=== PATIENT | female | born 1955 | race Caucasian/White ===

== ENCOUNTER 2017-01-15 04:27 | Inpatient (IN) | payer OTHER ==
--- NOTE | ~2017-01-15 | EKG ---
PATIENT: AQUILES MENDOZA UNIT #: [id number] Ventricular Rate: 59 BPM Atrial Rate: 59 BPM P-R Interval: 132 ms QRS Duration: 96 ms Q-T Interval: 474 ms QTC Calculation(Bezet): 469 ms P [place]: 66 degrees Calculated R [place]: 39 degrees Calculated T [place]: 37 degrees Diagnosis Line: Sinus bradycardia with sinus arrhythmia Diagnosis Line: Septal infarct (cited on or before 15-JAN-2017) Diagnosis Line: Abnormal ECG Diagnosis Line: When compared with ECG of 16-JAN-2017 06:18, Diagnosis Line: Serial changes of Septal infarct Present Diagnosis Line: Confirmed by JAZMINE KELLEY MD ([id number]) on 01/17/2017 Diagnosis Line: 7:40:32 PM INTERPRETING MD: WARREN MCCURDY
--- NOTE | ~2017-01-15 | CR72 ---
[facility] A Service of [facility] RADIOLOGY TEXT RESULTS PATIENT: AQUILES MENDOZA LOCATION: [address] : [birth year] UNIT #: [id number] AGE: [address]: Jace Mcgregor MD SEX: F ORDER DR: [id number] [facility] [address] [facility] [place], [place] [address] [id number] MR#: [id number] Acc #: [id number] NAME: AQUILES MENDOZA : 1955 SEX: F STUDY DATE/TIME: 01/15/2017 17:00 UNIT: [facility] ROOM: [facility] STUDY DESCRIPTION: CR Chest Single View Portable Attending Physician: Marybel Ramesh M.D. Ordering Physician: Lalito Ya M.D. Primary Care Physician: Leon Mckinney M.D. MEDICAL IMAGING REPORT This report is preliminary unless electronic signature is present EXAM Portable chest x-ray, 01/15/2017 HISTORY Status post central line placement. COMPARISON 01/15/2017 at 0426 hours. FINDINGS AP radiograph of the chest is presented. Endotracheal tube terminates 3.6 cm above asim. Right internal jugular approach central venous catheter terminates at the level of the superior vena cava - right atrial junction. The heart and mediastinum are normal in size and contour given slight left anterior oblique projection. The lungs are well inflated without evidence of acute infectious or inflammatory disease. No pleural effusion or pneumothorax. Previously described nodular density in the periphery of the right mid lung zone is less conspicuous on current examination but is faintly evident. Please see chest CT examination dated 01/05/2017 for further characterization and followup recommendations. No entirely new nodules are seen. There is no pleural effusion or pneumothorax. Dictated by... Leonel Alston M.D. THIS IS AN ELECTRONICALLY VERIFIED REPORT Leonel Alston M.D. at 01/17/2017 5:52 PM CAMI/jethro [facility] A Service of [facility] RADIOLOGY TEXT RESULTS PATIENT: AQUILES MENDOZA LOCATION: [address] : [birth year] UNIT #: [id number] AGE: [address]: Jace Mcgregor MD SEX: F ORDER DR: TD: 01/15/2017 23:52 JOB #: [id number] MEDICAL IMAGING REPORT COPY
--- NOTE | ~2017-01-15 | CR6 ---
[facility] A Service of [facility] RADIOLOGY TEXT RESULTS PATIENT: AQUILES MENDOZA LOCATION: [address] : [birth year] UNIT #: [id number] AGE: [address]: Jace Mcgregor MD SEX: F ORDER DR: [id number] [facility] [address] [place], [place] [address] [id number] I MR#: [id number] Acc #: [id number] NAME: AQUILES MENDOZA : 1955 SEX: F STUDY DATE/TIME: 01/17/2017 2:36 UNIT: [facility] ROOM: [facility] STUDY DESCRIPTION: CR Abdomen Portable Sng View Attending Physician: Jace Mcgregor M.D. Ordering Physician: Jace Mcgregor M.D. Primary Care Physician: Leon Mckinney M.D. MEDICAL IMAGING REPORT This report is preliminary unless electronic signature is present EXAM Portable AP view of the abdomen, COMPARISON January 16, 2017. INDICATIONS 61-year-old female. Feeding tube placement today. FINDINGS Weighted feeding tube tip is within the gastric fundus. Right internal jugular catheter tip terminates near the cavoatrial junction. Endotracheal tube tip terminates approximately 5.3 cm above the asim. No abnormally dilated bowel loops. IMPRESSION 1. Weighted feeding tube tip likely terminates within the gastric fundus. No evidence of bowel obstruction. 2. Endotracheal tube and right internal jugular catheter appear adequately positioned. Dictated by... Tejas Kwok M.D. THIS IS AN ELECTRONICALLY VERIFIED REPORT Tejas Kwok M.D. at 01/17/2017 12:53 PM LOGAN/graciela TD: 01/17/2017 09:31 JOB #: [id number] MEDICAL IMAGING REPORT COPY
--- NOTE | ~2017-01-15 | FU ---
[facility] Nutrition Therapy DATE: 01/19/17 Patient: AQUILES MENDOZA Physician: JUD Address: [address] [place] [address] Room/Bed: [address] [place] [address], Zip: [place] [address] Admit Date: 01/15/17 Date of : 57 Height: 5 6 Weight: 181 82.5 NUTRITION MONITORING/FOLLOW-UP: Reason: PT SEEN FOR FOLLOW-UP DX: RESUSCITATED ARREST Anthropometrics: 5'6", WT: 181# (82 KG), BMI: 29.2 -ADMIT WEIGHT: 168# Labs: GLU: 132, ALT: 43, PHOS: 2.4 (01/16/17), TGs: 193 (01/15/17) Meds: PROTONIX, NACL, SOLU-MEDROL, KCL, NOVOLOG, ZOFRAN, LIPITOR I&O's: 7561/[id number] Skin: ISSUES NOTED EDEMA: BUE/BLE GENERALIZED EDEMA Estimated Nutrition Needs: N/A Assessment: CHART REVIEWED AND EVENTS NOTED. PT SEEN FOR FOLLOW-UP. PT REPORTS APPETITE IMPROVING, NO C/O N/V/D. PT NOTES TOLERATING PO INTAKE, STATES SHE ATE ~50% BREAKFAST AND ~75% LUNCH TODAY. THIS RD ENCOURAGED ADEQUATE KCAL AND PROTEIN INTAKE, PT AGREED BUT REFUSED SUPPLEMENTS AT THIS TIME. PT REPORTED NO DIET QUESTIONS AT THIS TIME. RD TO FOLLOW. Dx: ALTERED NUTRIENT UTILIZATION R/T CURRENT CONDITION AEB NEED FOR THERAPEUTIC DIET ORDER, ELEVATED BLOOD SUGARS (STEROIDS?). Intervention: 1. CC DIET Monitoring, Evaluation and Goals: GOALS MET 1. PO INTAKE; CONSUME >50% OF MEALS W/NO C/O N/V/D 2. LABS; WNL MONITOR: -PO INTAKE/APPETITE -WEIGHTS -LABS Recommendations: 1. CONTINUE TO ENCOURAGE ADEQUATE KCAL AND PROTEIN INTAKE [facility] Nutrition Therapy DATE: 01/19/17 Patient: AQUILES MENDOZA Physician: JUD Address: [address] [place] [address] Room/Bed: [address] [place] [address], Zip: [place] [address] Admit Date: 01/15/17 Date of : 57 Height: 5 6 Weight: [address] WILL F/U PER PROTOCOL PT IS MILDLY COMPROMISED Respectfully, PAMELA NYE MS, RD, LD Food and Nutritional Services [facility] cc: client file
--- NOTE | ~2017-01-15 | EE ---
Unit #: [id number] #: [id number] Patient: AQUILES MENDOZA [id number] [address] [address] [id number] I MR#: [id number] NAME: AQUILES MENDOZA : 1955 SEX: F STUDY DATE/TIME: 01/17/2017 UNIT: [facility] ROOM: [facility] STUDY DESCRIPTION: EEG Attending Physician: Jace Mcgregor M.D. Referring Physician: Candy Serrato A.P.R.N. Primary Care Physician: Leon Mckinney M.D. NEURODIAGNOSTICS REPORT EXAM EEG. REASON FOR THE STUDY The patient was intubated and ventilated and now is turning around. EEG was done to rule out seizures or other causes for her decreased level of consciousness. EEG DESCRIPTION This is an inpatient, portable, digitally recorded, multi montage adult EEG with leads placed according to the International 10/20 System. Hyperventilation and photic stimulation were not done. With the patient fully aroused, there is 9-10 Hertz posterior background. There was significant muscle and beta artifact. The patient did become drowsy and alpha dropout was seen, but I did not see any deeper stages of sleep. Some subtle slowing occasionally between T3 and T5, but really nothing suggesting seizure or status or other asymmetry or interictal discharges. Hyperventilation and photic stimulation were not done. IMPRESSION This is probably a contaminated EEG but nothing suggesting seizures, status, interictal discharges, or explanation for the patient's symptoms. Clinical correlation is recommended. Dictated by... Rajwinder Abdullahi/kenzie TD: 01/17/2017 21:08 JOB #: [id number] Unit #: [id number] #: [id number] Patient: AQUILES MENDZOA NEURODIAGNOSTICS REPORT X Sulma Ferrell MD NEURODIAGNOSTICS REPORT
--- NOTE | ~2017-01-15 | EKG ---
PATIENT: AQUILES MENDOZA UNIT #: [id number] Ventricular Rate: 82 BPM Atrial Rate: 82 BPM P-R Interval: 120 ms QRS Duration: 94 ms Q-T Interval: 398 ms QTC Calculation(Bezet): 464 ms P [place]: 79 degrees Calculated R [place]: 35 degrees Calculated T [place]: 20 degrees Diagnosis Line: Normal sinus rhythm Diagnosis Line: Septal infarct (cited on or before 15-JAN-2017) Diagnosis Line: Abnormal ECG Diagnosis Line: When compared with ECG of 17-JAN-2017 09:02, Diagnosis Line: T wave amplitude has increased in Anterior leads Diagnosis Line: Confirmed by JAZMINE KELLEY MD ([id number]) on 01/20/2017 Diagnosis Line: 5:53:06 PM INTERPRETING MD: WARREN MCCURDY
--- NOTE | ~2017-01-15 | CO ---
Unit #: [id number] #: [id number] Patient: AQUILES VIVEROS [id number] [facility]. [place], [place] [address] [id number] I MR#: [id number] NAME: AQUILES VIVEROS ROOM: [facility] Age: 61 Sex: F Admission Date: 01/15/2017 : 1955 Attending Physician: Jace Mcgregor M.D. Primary Care Physician: Leon Mckinney M.D. CONSULTATION REPORT HISTORY OF PRESENT ILLNESS Ms. Viveros is a lady, who was just discharged 2 weeks ago. She had been admitted for 4 days. The patient had a history of chronic obstructive pulmonary disease exacerbation and she has some supraventricular tachycardia. She had acute on chronic respiratory failure. She had failed outpatient therapy. The patient was having progressive shortness of air. She was placed on IV steroids and antibiotics. She was able to get out of bed. She did not complain of significant worsening of her COPD and was discharged home on 01/06/2017. On 01/15/2017, the patient woke up at 3:00 a.m. and heard her gasping for air. The patient was unresponsive and lips were turning blue. The patient's called EMS, started resuscitation. Ambulance came and the patient was intubated and brought to emergency room, never became responsive, was having ventricular tachycardia. She was having seizure-like activity with nystagmus. The patient was given Keppra. The patient had a weak pulse when they started CPR, and was intubated by EMS. The patient was in ventricular tachycardia on arrival, she was defibrillated x3. She did not have initiation of hypothermia protocol. ADDENDUM - JOB [id number] ALLERGIES The patient is allergic to IV dye. MEDICATIONS Current home medications include: 1. Ventolin 1 to 2 puffs q.4 hours p.r.n. 2. Hydralazine 50 mg t.i.d. 3. Estradiol 2 mg daily. 4. Symbicort 160/4.5 one puff inhalation b.i.d. 5. Tessalon Perles 100 mg p.o. 6. Guaifenesin 5 mg p.o. q.6 hours. 7. Bisacodyl 5 mg daily. 8. Omnicef 300 mg b.i.d. FAMILY HISTORY Negative for any heart disease or COPD. SOCIAL HISTORY The patient lives with family. Smokes one pack of cigarettes per day. Occasional alcohol. No drugs. REVIEW OF SYSTEMS Is not obtainable. No family is present and the patient is on the Unit #: [id number] #: [id number] Patient: AQUILES VIEVROS ventilator, so the history is obtained mostly from the chart. PHYSICAL EXAMINATION VITAL SIGNS: T-current is 98.1, respiratory rate is 18, blood pressure is 93/63, pulse is 86. HEENT: The patient's pupils are very sluggish, but still appears to be equal bilaterally. Head is normocephalic and atraumatic. CARDIOVASCULAR: Regular rate. No gallop. NECK: Shows no accessory muscle use. CHEST: Shows decreased breath sounds bilaterally. EXTREMITIES: Shows no evidence of edema. DIAGNOSTIC STUDIES LABORATORY RESULTS: Blood gas; 7.24, 51.9, and 97 on AC 60% FiO2 of 18, 400 cc tidal volume, PEEP of 5. The white count 39.4, hemoglobin 15.1, and platelets of 236. The BUN and creatinine 19/0.9, glucose of 270. INR is 1. Troponin is 0.09 to 0.16. B-type natriuretic peptide is 28. ASSESSMENT AND PLAN 1. Status post cardiopulmonary arrest. The patient is having amiodarone for electrolyte abnormalities. 2. The patient is having myotonic type activity. Neurology was consulted. All sedation is being held to be able to do an adequate neurological exam. 3. Chronic obstructive pulmonary disease exacerbation is ongoing. The patient is on steroids. She is on antibiotics and on scheduled nebulizers. 4. Ventricular tachycardia likely ischemic related. The patient is on amiodarone. 5. Ischemia secondary probably to respiratory failure and cardiac arrest. The patient is having a bump in her troponins. We will continue to trend them out. Keep the patient on the vent, access has been obtained with central line, it appears to be in good position and good to use. Thank you very much. Please page me at [phone] if you have any questions. Dictated by... Lalito Ya M.D. OSMAN/fawad TD: 01/16/2017 04:02 JOB #: [id number] CONSULTATION REPORT X Canelo Ya MD CONSULTATION REPORT
--- NOTE | ~2017-01-15 | A ---
[facility] Nutrition Therapy DATE: 01/16/17 Patient: AQUILES MENDOZA Physician: JUD Address: [address] [place] [address] Room/Bed: [address], Zip: [place] [address] Admit Date: 01/15/17 Date of : 57 Height: 5 6 Weight: 168 76.5 NUTRITIONAL ASSESSMENT: REASON: Enteral nutrition recommendations Admitting dx: 61 y/o female admitted s/p resuscitated arrest PMH: COPD, GERD, appy, duy, chronic respiratory failure, diverticular disease Anthropometrics: Ht: 66", Wt: 76.5 kg, BMI: 28 Labs: Glucose 189, AST 67, ALT 97, Glucose POC 177, Triglycerides 193 (01/15) Meds: Novolog (low SSI), Solu-Medrol, Zofran, PPI, Phenylephrine, Propofol @ 27 ml/hr (713 lipid kcals) I/O & Bowel function: LBM unknown Skin Integrity: Redness buttocks, scars/bruise/tattoo noted Edema: HOLLIS hands 1+, HOLLIS feet trace Estimated Nutrition Needs: 8913-4475 kcals per day (20-25 kcals/kg) 61-77 g protein per day (0.8-1.0 g/kg) Fluids consistent with kcal needs or per MD Assessment: Chart reviewed, events noted. See admitting dx and PMH above. Patient is intubated, sedated with Propofol currently providing 713 lipid kcals. Patient with drastic improvement overnight, is following commands, tracking, nodding appropriately. Blood pressure has been good per nursing, to get EEG today, possible wean trials. DHT ordered- see EN recs below. Patient is not appropriate for RD interview or education at this time. Dx: Inadequate protein energy intake r/t nutrition not yet initiated AEB NPO, need for EN. Intervention: EN recs as stated below, replace Phos Monitoring, Evaluation and Goals: 1. Nutrition support consistent with estimated needs. 2. Improvement in labs (lytes, glucose, triglycerides). Monitor: Per protocol, criteria to determine if above goals met Recommendations: [facility] Nutrition Therapy DATE: 01/16/17 Patient: AQUILES MENDOZA Physician: JUD Address: [address] [place] [address] Room/Bed: [address], Zip: [place] [address] Admit Date: 01/15/17 Date of : 57 Height: 5 6 Weight: 168 76.5 1. Replace Phos before starting enteral nutrition. Check triglycerides q 4 days while on Propofol (triglycerides 193 on 01/15). 2. Once DHT is placed start enteral nutrition with Jevity 1.5 @ 20 ml and increase by 10 ml q 4 hours until goal rate of 30 ml/hr is reached while on Propofol (Propofol currently providing 713 lipid kcals). Please order 30 ml Prostat daily to meet protein needs. This nutrition regimen + kcals from Propofol will provide 1893 kcals, 61 g protein and 547 ml water. Once at goal rate add free water flushes per MD RD recommends 200 ml q 4 hours. 3. If Propofol is D/C increase enteral feeds to new goal rate of 45 ml/hr and discontinue Prostat. This will provide 1620 kcals, 69 g protein and 821 ml water. Free water flushes per MD RD recommends 250 ml QID. 4. Change SSI to medium correct scale if hyperglycemia continues. The patient is on Solu-medrol. RD will follow hospital course Moderate-severe nutrition risk Respectfully, Radha Vogt, TRINA, LD Food and Nutritional Services [facility] cc: client file
--- NOTE | ~2017-01-15 | EKG ---
PATIENT: AQUILES MENDOZA UNIT #: [id number] Ventricular Rate: 66 BPM Atrial Rate: 66 BPM P-R Interval: 120 ms QRS Duration: 88 ms Q-T Interval: 560 ms QTC Calculation(Bezet): 587 ms P [place]: 65 degrees Calculated R [place]: 51 degrees Calculated T [place]: -110 degrees Diagnosis Line: Normal sinus rhythm Diagnosis Line: Anteroseptal infarct (cited on or before Diagnosis Line: 15-JAN-2017) Diagnosis Line: T wave abnormality, consider inferolateral Diagnosis Line: ischemia Diagnosis Line: Prolonged QT Diagnosis Line: Abnormal ECG Diagnosis Line: When compared with ECG of 15-JAN-2017 05:25, Diagnosis Line: (unconfirmed) Diagnosis Line: Serial changes of Anteroseptal infarct Present Diagnosis Line: Confirmed by PHAM SPANN MD ([id number]) on Diagnosis Line: 01/16/2017 12:05:18 PM INTERPRETING MD: WILFRED
--- NOTE | ~2017-01-15 | CO ---
Unit #: [id number] #: [id number] Patient: AQUILES MENDOZA [id number] [facility] [address] [place], [place] [address] [id number] I MR#: [id number] NAME: AQUILES MENDOZA ROOM: [facility] Age: 61 Sex: F Admission Date: 01/15/2017 : 1955 Attending Physician: Marybel Ramesh M.D. Primary Care Physician: Leon Mckinney M.D. Consultation Date: 01/15/2017 CONSULTATION REPORT PRIMARY CARE PHYSICIAN Dr. Leon Mckinney. REASON FOR CONSULTATION Questionable seizure like activity. PATIENT IDENTIFICATION This is a 61-year-old, unknown handedness, female, evaluated in ICU room 3 at [facility]. SOURCE OF INFORMATION Obtained from the medical record. HISTORY OF PRESENT ILLNESS This is a 61-year-old, unknown handedness, female with past medical history of COPD and SVT, who presented to [facility] with arrest at home. Apparently, the patient woke up around 3 o'clock this morning and her found her gasping for air. He found her unresponsive with a thready pulse. Her lips were turning blue. So, he called EMS and started CPR. Apparently, upon EMS arrival, resuscitation was continued and the patient apparently also received a shock as indicated with the AED. I do not have those full details. The patient was apparently intubated en route and brought to the ER for further evaluation. She was found to be in v-tach and was concerned about seizure like activity, although I do not know if any actual seizure activity was noted here at this facility and speaking with the RN, who is taking care of the patient currently, who spoke with the . Apparently, he was told by EMS that she had seizure like activity when they were resuscitating her. I do not have any details. She has had not had any obvious seizure activity here, but had some nystagmus in the ED and in the ICU, so Keppra was started. She was given a loading dose and we are continuing that medication at this time. Apparently, according to the and looking at the documentation, she has not had any recent complaints of acute shortness of breath, wheezing, fever, chills, chest pain, nausea, vomiting or any other issues prior to going to bed last night. She was recently discharged on 01/06/2017 for COPD exacerbation and head CT was done in the ER and is negative for any acute intracranial abnormality. Imaging has been reviewed. PAST MEDICAL HISTORY 1. COPD. 2. GERD. 3. Chronic respiratory failure. 4. SVT. Unit #: [id number] #: [id number] Patient: AQUILES MENDOZA 5. Status post cholecystectomy. 6. Total abdominal hysterectomy with bilateral salpingo-oophorectomy. 7. Bladder surgery. 8. Appendectomy. 9. EGD and colonoscopy in 2007, revealing diverticular disease. ALLERGIES IV dye. HOME MEDICATIONS Include Ventolin, hydralazine, estradiol, Symbicort, Tessalon Perles, guaifenesin, bisacodyl, Omnicef. FAMILY HISTORY Unknown and unable to be obtained at this time from the patient. SOCIAL HISTORY The patient lives with her . She smokes one pack per day of tobacco according to the medical record. Occasional alcohol use. No abuse. No known illicit drug use. REVIEW OF SYSTEMS Unable to obtain from the patient at this time given her mental status and medical condition. No family is available currently. Otherwise, please see above in the HPI, per medical record. PHYSICAL EXAMINATION VITAL SIGNS: Temperature 98.1, she has been afebrile. She was actually hypothermic upon arrival at 95.5, pulse 86, respirations 18, blood pressure 93/63, blood pressure on arrival in the ER was 117/87, oxygen saturation 100% on the ventilator. Height 5 feet 6 inches, weight 177 pounds, BMI 28. NEUROLOGIC: The patient is currently intubated. She is also sedated on a midazolam drip 5 mg/hour. No myoclonus or seizure activity appreciated. She is withdrawing bilaterally to noxious stimuli consistently and repeatedly. She is grimacing to noxious stimuli. She is not following commands. She has positive corneal. Pupils are equal, round, and reactive, about 4 to 5 mm. She does have a dysconjugate gaze with the left eye appearing abnormal, some roving eye movements. No nystagmus or hippus seen currently. Cranial nerve exam; unable to evaluate ba of vision. Again as far as I see, please see above. No current ptosis or nystagmus. Positive roving eye movements and abnormal extraocular movements. Unable to assess sensation of face and scalp or strength of muscles of facial expression, but no asymmetry. She is grimacing. Unable to assess hearing, tongue, uvula or palate, head turning or shoulder shrug. Neck is supple. Motor exam, she withdraws equally and bilaterally to noxious stimuli and grimaces as well. Sensory exam, she withdraws to noxious stimuli, otherwise limited. Gait and Romberg deferred. Reflexes, unable to elicit. Toes are equivocal. Coordination, unable to assess. DIAGNOSTIC STUDIES IMAGING STUDIES: CT of the head without contrast on 01/15/2017, the brain appears normal. No acute abnormality seen. Sinus mucosal thickening is Unit #: [id number] #: [id number] Patient: AQUILES MENDOZA seen, but nonspecific finding in an intubated patient. Please see radiology report. Chest x-ray, portable single view on 01/15/2017, adequate position of the endotracheal tube, located approximately 4.7 cm above the asim. No evidence for acute airspace disease. There is focal somewhat nodular vague opacity in the right lung, measuring up to 1.6 cm, which appears to have been present in 11/2016 in retrospect, but not present in 03/2016. Further evaluation with CT of chest was actually performed demonstrating pleural based nodular density in this location. Recommendations and followup chest CT without contrast in three months did document stability or resolution. Please see radiology report. CARDIOVASCULAR STUDIES: EKG from 01/15/2017 this morning at 7:00 shows normal sinus rhythm with sinus arrhythmia, septal infarct age indeterminate, 73 beats per minute per Cardiology report. LABORATORY RESULTS: TSH 0.67. Initial troponin 0.09, repeat 0.16, and then repeat following that 0.35. Urinalysis; 1+ leuks, 1+ protein, 3+ blood, 10 to 25 red cells, 0 to 2 white cells, few squamous cells. BNP is 28, PT 10.5, INR 1.0, PTT 22.8. Sodium 140, potassium 4.8, chloride 105, CO2 of 19, glucose 270, BUN 19, creatinine 0.9, estimated GFR above 60, calcium 8.1. White blood cell count 39.4, hemoglobin 15.1, hematocrit 47.8, and platelet count 236. Blood gas pH 7.244, pCO2 of 51.9, pO2 of 97. IMPRESSION 1. Encephalopathy, toxic and metabolic versus hypoxic. 2. Questionable seizure, none observed currently. We will continue Keppra and request EEG given seizure activity reported. 3. Status post arrest. 4. Acute on chronic respiratory failure. 5. Chronic obstructive pulmonary disease. 6. Elevated troponin. PLAN We will continue Keppra 500 mg IV b.i.d. and check an EEG. We will repeat imaging when patient's condition allows and monitor for possible anoxic brain injury, though the patient is withdrawing currently which is an improvement from this morning. 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 Again, she does have some abnormal eye findings though she would not be a candidate for any acute intervention given her presentation. We will repeat imaging as her condition allows and provide supportive care in the interim and treat for possible seizure activity. Case was discussed with Dr. Ferrell and he agrees to the above. We will follow along with you. Thank you very much for allowing us to assist in the care of this patient. Dictated by... Candy Serrato A.P.R.N. for Rajwidner Abdullahi/fawad TD: 01/16/2017 04:19 JOB #: [id number] Unit #: [id number] #: [id number] Patient: AQUILES MENDOZA CONSULTATION REPORT X Candy Serrato APRN X CONSULTATION REPORT
--- NOTE | ~2017-01-15 | CR72 ---
[facility] A Service of [facility] RADIOLOGY TEXT RESULTS PATIENT: AQUILES MENDOZA LOCATION: [facility] 562-01 : [birth year] UNIT #: [id number] AGE: [address]: Jace Mcgregor MD SEX: F ORDER DR: [id number] [facility] [address] [place], [place] [address] [id number] I MR#: [id number] Acc #: [id number] NAME: AQUILES MENDOZA : 1955 SEX: F STUDY DATE/TIME: 01/15/2017 4:26 UNIT: [facility] ROOM: [facility] STUDY DESCRIPTION: CR Chest Single View Portable Attending Physician: Marybel Ramesh M.D. Ordering Physician: Bjorn Bryan M.D. Primary Care Physician: Leon Mckinney M.D. MEDICAL IMAGING REPORT This report is preliminary unless electronic signature is present EXAM Portable AP view of the chest COMPARISON 01/04/2017, 10/01/2017. INDICATION 61-year-old female post cardiopulmonary arrest post resuscitation, and endotracheal intubation. History of hypertension, COPD. FINDINGS Evaluation of the right upper chest is limited by percutaneous defibrillator pad. No evidence of pneumothorax, pleural effusion. Endotracheal tube is adequately positioned to approximately 4.7 cm above the asim. There appears to be vague focal opacity in the periphery of the right mid-lung measuring up to approximately 1.6 cm. This has been present going back to 12/09/2016 but appears new from 03/23/2016. Cholecystectomy clips are noted. IMPRESSION 1. Adequate position of endotracheal tube located approximate 4.7 cm above the asim. 2. No evidence of acute airspace disease. There is a focal somewhat nodular vague opacity in the right lung measuring up to 1.6 cm which appears to have been present in November of this year in retrospect, but was not present in March 2016. Further evaluation with CT chest is actually performed demonstrating a pleural-based nodular density in this location. Recommendations stand for followup chest CT without contrast in 3 months to document stability or resolution. Dictated by... Tejas Kwok M.D. [facility]. [facility] A Service of [facility] RADIOLOGY TEXT RESULTS PATIENT: AQUILES MENDOZA LOCATION: [facility] 562-01 : [birth year] UNIT #: [id number] AGE: [address]: Jace Mcgregor MD SEX: F ORDER DR: THIS IS AN ELECTRONICALLY VERIFIED REPORT Tejas Kwok M.D. at 01/18/2017 6:37 PM LOGAN/reynold TD: 01/15/2017 10:49 JOB #: [id number] MEDICAL IMAGING REPORT COPY
--- NOTE | ~2017-01-15 | CT71 ---
[facility] A Service of [facility] RADIOLOGY TEXT RESULTS PATIENT: AQUILES MENDOZA LOCATION: C5 5601 : [birth year] UNIT #: [id number] AGE: [address]: Jace Mcgregor MD SEX: F ORDER DR: [id number] [facility] [address] [place], [place] [address] [id number] I MR#: [id number] Acc #: [id number] NAME: AQUILES MENDOZA : 1955 SEX: F STUDY DATE/TIME: 01/15/2017 6:03 UNIT: [facility] ROOM: [facility] STUDY DESCRIPTION: CT Head Wo Contrast Attending Physician: Marybel Ramesh M.D. Ordering Physician: Bjorn Bryan M.D. Primary Care Physician: Loen Mckinney M.D. MEDICAL IMAGING REPORT This report is preliminary unless electronic signature is present EXAM Head CT no contrast 01/15/2017 PROCEDURE Axial unenhanced head CT. This CT exam was performed with one or more of the following radiation dose reduction techniques: automatic exposure control, adjustment of mA and/or kV according to patient size, and iterative reconstruction. COMPARISON 12/11/2006 CLINICAL HISTORY Unresponsive, on a ventilator after resuscitation from cardiac arrest. FINDINGS There is no intracranial hemorrhage or mass. The brain appears normal and symmetric. Brain parenchymal density appears normal. There is no hydrocephalus or extra-axial fluid collection. There is some sinus mucosal thickening, though that is a nonspecific finding in an intubated patient. The extracranial soft tissues are unremarkable. IMPRESSION The brain appears normal. No acute abnormality is seen. Sinus mucosal thickening is seen but is a nonspecific finding in an intubated patient. Dictated by... Warren Coronel M.D. THIS IS AN ELECTRONICALLY VERIFIED REPORT Warren Coronel M.D. at 01/18/2017 7:06 PM [facility] A Service of [facility] RADIOLOGY TEXT RESULTS PATIENT: AQUILES MENDOZA LOCATION: [facility] 5612-20 : [birth year] UNIT #: [id number] AGE: [address]: Jace Mcgregor MD SEX: F ORDER DR: Guerline TD: 01/15/2017 11:04 JOB #: [id number] MEDICAL IMAGING REPORT COPY
--- NOTE | ~2017-01-15 | CT71 ---
[facility] A Service of [facility] RADIOLOGY TEXT RESULTS PATIENT: AQUILES MENDOZA LOCATION: [facility] : 57 UNIT #: [id number] AGE: [address]: Jace Mcgregor MD SEX: F ORDER DR: [id number] [facility] [address] [place], [place] [address] [id number] I MR#: [id number] Acc #: [id number] NAME: AQUILES MENDOZA : 1955 SEX: F STUDY DATE/TIME: 01/20/2017 8:20 UNIT: [facility] ROOM: [facility] STUDY DESCRIPTION: CT Head Wo Contrast Attending Physician: Jace Mcgregor M.D. Ordering Physician: Jace Mcgregor M.D. Primary Care Physician: Leon Mckinney M.D. MEDICAL IMAGING REPORT This report is preliminary unless electronic signature is present EXAM CT head without contrast. DATE OF EXAM 01/20/2017 CLINICAL HISTORY Resuscitated arrest, mental status changes, confused today. COMMENT Routine noncontrast head CT is reviewed. COMPARISON There is a comparison study from 01/15/2017. TECHNIQUE NOTE: This CT exam was performed with one or more of the following radiation dose reduction techniques: automatic exposure control, adjustment of mA and/or kV according to patient size, and iterative reconstruction. FINDINGS There is some motion limitation of the exam necessitating repeat lower images. They are still somewhat limited. There is no displaced calvarial fracture. The visualized mastoid air cells, and paranasal sinuses show small amount of right sphenoid disease with some retained secretions. There is some vascular calcification at the carotid siphons. There is no acute intracranial hemorrhage, extraaxial fluid collection or intracranial mass effect. The basilar cisterns are patent. There is no midline shift or hydrocephalus. The ventricles are normal in size and configuration. Aggarwal-white junction is relatively well-maintained. IMPRESSION [facility] A Service of [facility] RADIOLOGY TEXT RESULTS PATIENT: AQUILES MENDOZA LOCATION: [facility] : 57 UNIT #: [id number] AGE: [address]: Jace Mcgregor MD SEX: F ORDER DR: 1. No acute intracranial abnormality suspected but if symptoms persist consider followup imaging preferably MRI. 2. Some retained secretions in the right sphenoid sinus. Dictated by... Mariah Larios M.D. THIS IS AN ELECTRONICALLY VERIFIED REPORT Mariah Larios M.D. at 01/21/2017 6:19 AM MYRON/justo TD: 01/20/2017 20:50 JOB #: [id number] MEDICAL IMAGING REPORT COPY
--- NOTE | ~2017-01-15 | CR7 ---
[facility] A Service of [facility] & [facility] RADIOLOGY TEXT RESULTS PATIENT: AQUILES MENDOZA LOCATION: [place] [id number] : [birth year] UNIT #: [id number] AGE: [address]: Jace Mcgregor MD SEX: F ORDER DR: [id number] [facility] [address] [place], [place] [address] [id number] I MR#: [id number] Acc #: [id number] NAME: AQUILES MENDOZA : 1955 SEX: F STUDY DATE/TIME: 01/16/2017 10:44 UNIT: [facility] ROOM: [facility] STUDY DESCRIPTION: CR Abdomen Single AP View Attending Physician: Jace Mcgregor M.D. Ordering Physician: Jace Mcgregor M.D. Primary Care Physician: Leon Mckinney M.D. MEDICAL IMAGING REPORT This report is preliminary unless electronic signature is present EXAM Portable abdomen HISTORY Dobbhoff tube placement FINDINGS The tip of the flexible feeding tube is in the gastric antrum. Postop changes of prior cholecystectomy. Dictated by... Leonel Mclean M.D. THIS IS AN ELECTRONICALLY VERIFIED REPORT Leonel Mclean M.D. at 01/17/2017 5:04 PM SHIRAK/manjula TD: 01/16/2017 12:04 JOB #: [id number] MEDICAL IMAGING REPORT COPY
--- NOTE | ~2017-01-15 | DS ---
Unit #: [id number] #: [id number] Patient: AQUILES MENDOZA [id number] [address] [place], [place] [address] [id number] I MR#: [id number] NAME: AQUILES MENDOZA ROOM: 56 Age: 61 Sex: F Admission Date: 01/15/2017 : 1955 Discharge Date: 01/23/2017 Attending Physician: Leon Mckinney M.D. Primary Care Physician: Leon Mckinney M.D. DISCHARGE SUMMARY TRANSITION CARE SUMMARY REASON FOR ADMISSION Questionable cardiac arrest. HISTORY OF PRESENT ILLNESS/HOSPITAL COURSE Please see H and P for complete details. The patient was subsequently transferred to the ICU after she was noted to have a weak pulse at home and her had initiated appropriate CPR. In consideration of her ICU stay, consultation was placed to Dr. Ya, but continued to follow the patient through hospital course. Gradually, she was extubated and placed on O2 via nasal cannula. In regard to cardiac arrhythmia changes as well as cardiac arrest, consultation has been placed to Dr. Awan and associates for evaluation. Through hospital course, the patient has undergone cardiac catheterization, which did reveal an occlusion in the RCA approximately 75%. Secondary to cardiac arrhythmia changes, Dr. Awan is now considering EP studies in consideration of possible transfer while inhouse versus outpatient followup. Secondary to hospital course prolonged immobility syndrome, recommendations have been made for outpatient rehab versus inpatient rehab by Physical and Occupational Therapy Services. In consideration of prior history of COPD, Pulmonary Service has been following. Secondary to mental status changes as well as after being extubated and temporary encephalopathy consultation was placed to Neurology Services. Yesterday, the patient underwent MRI brain without contrast, which did not reveal any acute process. Neurology Service has been following as well. Secondary to intractable back pain, the patient underwent CT thoracic as well as lumbar consultation was placed to Dr. Barrera for pain management. It is recommended the patient not to be placed on chronic narcotic pain medications. When we initiated Valium on a p.r.n. basis for anxiety, she began developing mental status changes yesterday. These medications were Unit #: [id number] #: [id number] Patient: AQUILES MENDOZA subsequently discontinued. CURRENT CLINICAL DIAGNOSES 1. Acute hypoxic respiratory failure. 2. Cardiac arrhythmia/ventricular tachycardia runs/rhythm changes. 3. 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 4. Acute exacerbation of chronic obstructive pulmonary disease. 5. Generalized anxiety disorder. 6. Chronic back pain. 7. Mental status changes likely secondary to Solu-Medrol as well as benzodiazepines. 8. Questionable resuscitated arrest at home. Dictated by... Rajwinder Maier/fawad TD: 01/24/2017 07:24 JOB #: [id number] DISCHARGE SUMMARY X Jace Mcgregor MD X DISCHARGE SUMMARY
--- NOTE | ~2017-01-15 | CO ---
Unit #: [id number] #: [id number] Patient: AQUILES VIVEROS [id number] [facility]. [place], [place] [address] [id number] I MR#: [id number] NAME: AQUILES VIVEROS ROOM: [facility] Age: 61 Sex: F Admission Date: 01/15/2017 : 1955 Attending Physician: Jace Mcgregor M.D. Primary Care Physician: Leon Mckinney M.D. CONSULTATION REPORT REASON FOR CONSULT Ventricular tachycardia. HISTORY OF PRESENT ILLNESS Ms. Viveros is a 61-year-old female, who was in bed last night when her heard a gasping noise and turned around to see his literally gasping for breath. He started cardiopulmonary resuscitation with cardiac massage and could feel a very faint pulse. He called the head silverman. head silverman took over the CPR, advised her to go downstairs to the living room as they tried to resuscitate her. Resuscitative efforts continued for almost 45 minutes and at 10 minutes to 4, the patient was taken out of the house on a stretcher following intubation and DC shocks with continued CPR and brought to the emergency room at [facility]. She was found to have runs of ventricular tachycardia, intravenous fluids were started and the patient was supported on the ventilator. She is now admitted to the intensive care unit and I have been asked to manage her cardiac abnormalities. I talked to the and her son to get details of the history. She is known to have severe COPD, she has been a heavy smoker most of her adult life, has been treated with bronchodilators and steroids on occasions and recently was discharged on the 06 of January that is 10 days ago following treatment of acute bronchitis and exacerbation of chronic obstructive pulmonary disease. There is no history of previous IN, leg edema, syncope, near syncope, transient ischemic attacks. There is no history of diabetes mellitus, previous IN, strokes, rheumatic fever, heart murmur. SOCIAL AND PERSONAL HISTORY She has a total smoking history of greater than 50-pack years and recently had cut it down to two or three cigarettes a day. According to her son, the patient used to drink relatively large amounts of alcohol on weekends. FAMILY HISTORY Her father had coronary artery disease at an advanced age. PHYSICAL EXAMINATION GENERAL: Reveals middle-aged female, is intubated. VITAL SIGNS: Has a heart rate of 80 per minute and regular, blood pressure is 84/60 mmHg. HEENT: Pupils are dilated and not reactive to light. CARDIAC: Shows apical impulse is palpable in fifth intercostal space and midclavicular line and is normal. Both heart sounds are normal. No rubs Unit #: [id number] #: [id number] Patient: WEBIE,LAVARVA or clicks are audible. There is no murmur. CHEST: Shows good air entry bilaterally. Occasional rhonchi are noted at the left base. There are no rales. ABDOMEN: Shows soft anterior abdominal wall. There are no masses or organomegaly. Bowel sounds are absent. RECTAL: Not done. FISH CAKE MAKER: Shows the patient is comatose. She is being treated with intravenous fentanyl drip. There are no spontaneous movements. DIAGNOSTIC STUDIES CARDIOVASCULAR STUDIES: EKG shows normal sinus rhythm. Poor R-wave progression in V1, V2 suggestive of septal wall IN. LABORATORY RESULTS: Initial cardiac enzymes at the time of admission were normal. White count is elevated to 39,000, probably secondary to demargination; hemoglobin is 15.1; hematocrit 47.8; 236,000 platelet count is noted. Potassium is 4.8, chloride 105, GFR greater than 60. Magnesium level is not available. Serum troponin level is 0.16 at 6:55 a.m., MB percent is 7.6. DIAGNOSES 1. Status post resuscitated cardiac arrest. 2. Respiratory failure. 3. Cardiogenic shock. 4. History of ventricular tachycardia. 5. Anoxic encephalopathy. 6. Severe chronic obstructive pulmonary disease. 7. Metabolic acidosis secondary to hypoperfusion. PLAN The patient has already been started on intravenous amiodarone and fentanyl. Intravenous Anthony-Synephrine would be started to maintain blood pressure. Cardiac enzymes and EKGs would be checked. CT scan of the head showed brain appeared normal. There were no acute abnormalities and hence, the patient will be started on low molecular weight heparin at a full anticoagulating dose in case she has had acute coronary syndrome as a cause of her cardiorespiratory arrest. Her long-term prognosis would depend upon recovery of brain function and I have discussed this at length with the patient's family. We will follow the patient with you. Thank you very much for associating us in the care of Ms. Viveros. Dictated by... Rajwinder Kirby/fawad TD: 01/16/2017 02:22 JOB #: [id number] CC: Marybel Ramesh M.D. Unit #: [id number] #: [id number] Patient: AQUILES VIVEROS CONSULTATION REPORT X Leonard Awan MD X CONSULTATION REPORT
--- NOTE | ~2017-01-15 | MR18 ---
[facility] A Service of [facility] RADIOLOGY TEXT RESULTS PATIENT: AQUILES MENDOZA LOCATION: [facility] 562-01 : [birth year] UNIT #: [id number] AGE: [address]: Jace Mcgregor MD SEX: F ORDER DR: [id number] [facility] [address] [facility] [place], [place] [address] [id number] I MR#: [id number] Acc #: [id number] NAME: AQUILES MENDOZA : 1955 SEX: F STUDY DATE/TIME: 01/20/2017 11:41 UNIT: [facility] ROOM: [facility] STUDY DESCRIPTION: MR Brain Wo Contrast Attending Physician: Jace Mcgregor M.D. Ordering Physician: Sulma Ferrell M.D. Primary Care Physician: Leon Mckinney M.D. MRI CENTER REPORT This report is preliminary unless electronic signature is present. EXAM MRI brain HISTORY Patient arrested indicating confused, resuscitated on 01/15/2017. Patient is disoriented today. COMMENT MRI of the brain was performed without contrast using routine 1.5T imaging technique. There is a earlier head CT. There is some motion limitation of the study. There is no evidence for a recent ischemic insult on the diffusion series. No Chiari-I malformation. No extraaxial fluid collection. Ventricles are normal in size and configuration for age group. There is only mild periventricular white matter signal abnormality nonspecific likely due to small vessel disease. The major intracranial flow voids are maintained. Minimal fluid or inflammatory change right side mastoid air cells. Paranasal sinuses essentially clear. Basilar cisterns patent. No intracranial mass effect. Small chronic-appearing lacunar type insult left cerebellar hemisphere. IMPRESSION 1. No evidence for recent ischemic insult on the diffusion series. 2. Small chronic-appearing lacunar type insult left cerebellar hemisphere. Minor probable sequelae of small vessel disease in the supratentorial white matter otherwise essentially negative noncontrast MRI of the brain. Dictated by... Mariah Larios M.D. [facility] A Service of [facility] RADIOLOGY TEXT RESULTS PATIENT: AQUILES MENDOZA LOCATION: [facility] 562-01 : [birth year] UNIT #: [id number] AGE: [address]: Jace Mcgregor MD SEX: F ORDER DR: THIS IS AN ELECTRONICALLY VERIFIED REPORT Mariah Larios M.D. at 01/21/2017 6:20 AM MYRON/ban TD: 01/21/2017 05:12 JOB #: [id number] MRI CENTER REPORT COPY
--- NOTE | ~2017-01-15 | CR72 ---
[facility] A Service of [facility] & [facility] RADIOLOGY TEXT RESULTS PATIENT: AQUILES MENDOZA LOCATION: [facility] 562-01 : [birth year] UNIT #: [id number] AGE: [address]: Jace Mcgregor MD SEX: F ORDER DR: [id number] [facility] [address] [facility]. [place], [place] [address] [id number] I MR#: [id number] Acc #: [id number] NAME: AQUILES MENDOZA : 1955 SEX: F STUDY DATE/TIME: 01/18/2017 4:19 UNIT: [facility] ROOM: [facility] STUDY DESCRIPTION: CR Chest Single View Portable Attending Physician: Jace Mcgregor M.D. Ordering Physician: Canelo Ya Primary Care Physician: Leon Mckinney M.D. MEDICAL IMAGING REPORT This report is preliminary unless electronic signature is present EXAM Portable AP view of the chest COMPARISON January 16, 2017 and January 15, 2017. INDICATIONS 61-year-old female with respiratory failure for 3 days after cardiopulmonary arrest and resuscitation. FINDINGS/IMPRESSION There has been endotracheal extubation since the comparison exam. Right internal jugular catheter again terminates in the lower SVC. No evidence of pneumothorax, pleural effusion or acute airspace disease. Cardiomediastinal silhouette is normal. Dictated by... Tejas Kwok M.D. THIS IS AN ELECTRONICALLY VERIFIED REPORT Tejas Kwok M.D. at 01/19/2017 7:41 AM Con TD: 01/18/2017 06:22 JOB #: [id number] MEDICAL IMAGING REPORT COPY
--- NOTE | ~2017-01-15 | CR72 ---
[facility] A Service of [facility] & [facility] RADIOLOGY TEXT RESULTS PATIENT: AQUILES MENDOZA LOCATION: [facility] 562-01 : [birth year] UNIT #: [id number] AGE: [address]: Jace Mcgregor MD SEX: F ORDER DR: [id number] [facility] [address] [facility]. [place], [place] [address] [id number] I MR#: [id number] Acc #: [id number] NAME: AQUILES MENDOZA : 1955 SEX: F STUDY DATE/TIME: 01/21/2017 04:31 UNIT: [facility] ROOM: [facility] STUDY DESCRIPTION: CR Chest Single View Portable Attending Physician: Jace Mcgregor M.D. Ordering Physician: Lalito Ya M.D. Primary Care Physician: Leon Mckinney M.D. MEDICAL IMAGING REPORT This report is preliminary unless electronic signature is present EXAM Portable chest, 01/21 at 04:31 INDICATION Status post resuscitated arrest. Respiratory failure. FINDINGS AP portable chest is compared with 01/18/2017. Right IJ line is at the right atrial level. Patient is rotated on this exam. There has been interval development of a small to moderate left pleural effusion with some consolidation in the left lung base. Minimal atelectasis noted right lung base and there is a trace amount of right pleural fluid. No pneumothorax is seen. Dictated by... Holland Graff Jr., M.D. THIS IS AN ELECTRONICALLY VERIFIED REPORT Holland Graff Jr., M.D. at 01/21/2017 9:33 PM THA/shannan TD: 01/21/2017 17:06 JOB #: [id number] MEDICAL IMAGING REPORT COPY
--- NOTE | ~2017-01-15 | HP ---
Unit #: [id number] #: [id number] Patient: AQUILES MENDOZA [id number] [place], [place] [address] [id number] I MR#: [id number] NAME: AQUILES MENDOZA ROOM: [facility] Age: 61 Sex: F Admission Date: 01/15/2017 : 1955 Attending Physician: Marybel Ramesh M.D. Primary Care Physician: Leon Mckinney M.D. HISTORY AND PHYSICAL CHIEF COMPLAINT Cardiac arrest. HISTORY OF PRESENT ILLNESS This is a 61 year old female with history of COPD admitted because of post cardiac arrest. According to her , he woke up at 3 a.m. this morning and heard her gasping for air. He found her unresponsive. Her lips were turning blue, so he called EMS and started resuscitation. Ambulance came and they started resuscitation. Apparently they gave shock also. Later, the patient was intubated and brought to the emergency room. She was never responsive. She is having ventricular tachycardia. Also, she is having seizure-like activity with nystagmus in the eyes, so Keppra has been given. According to the , she did not have any shortness of breath, no wheezing, no fever, no chills, no chest pain, no nausea, no vomiting, no abdominal pain, no diarrhea before going to bed. She was recently discharged on January 06 for COPD exacerbation and supraventricular tachycardia. PAST MEDICAL HISTORY 1. COPD. 2. GERD. 3. Chronic respiratory failure. 4. Supraventricular tachycardia. 5. Status post cholecystectomy. 6. Total abdominal hysterectomy with bilateral salpingo-oophorectomy. 7. Bladder surgery. 8. Appendectomy. 9. History of EGD and colonoscopy 09/2008 with colonoscopy revealing diverticular disease. EGD at that time was negative. ALLERGIES IV dye. CURRENT HOME MEDICATIONS 1. Ventolin 1 puff inhalation q.4 p.r.n. 2. Hydralazine 50 t.i.d. 3. Estradiol 2 mg daily. 4. Symbicort 160 mcg 1 puff inhalation b.i.d. 5. Tessalon Perles 100 mg p.o. b.i.d. 6. Guaifenesin 5 mL p.o. q.6. 7. Bisacodyl 5 mg daily. 8. Omnicef 300 b.i.d. FAMILY HISTORY Unit #: [id number] #: [id number] Patient: AQUILES MENDOZA Negative for heart disease. SOCIAL HISTORY Lives with family. Smokes 1 pack of cigarettes per day. Occasional alcohol. No drugs. REVIEW OF SYSTEMS Unobtainable because the patient is unresponsive. PHYSICAL EXAMINATION VITALS: Temperature is 98.1, pulse 74, respirations 18, blood pressure 102/75. The initial blood pressure is 151/123 after ER. GENERAL EXAMINATION: Currently the patient is intubated, not sedated. EYES: Pupils are equally reactive to light and accommodation. Nystagmus present. MOUTH: Dry mucosa present. Gag reflex present. CHEST: Bilateral wheezing present. Decreased breath sounds. HEART: S1, S2 heard. Tachycardia present. No murmurs. ABDOMEN: Soft, nontender. Bowel sounds are present. Nondistended. EXTREMITIES: No pedal edema. SKIN: No rash. NEUROLOGIC: The patient is not sedated, but she is not responding. She does have pupillary and gag reflex. DIAGNOSTIC STUDIES LAB DATA: ABG - pH 7.24, carbon dioxide 51, oxygen 97. Urinalysis negative for infection. WBC 39.4, hemoglobin 15.1, platelets 236. Sodium 140, potassium 4.8, carbon dioxide 19, glucose 270, creatinine 0.9, calcium 8.1. Troponin 0.09 and 0.16. INR 1. BNP 28. CARDIOVASCULAR: EKG shows normal sinus rhythm with sinus arrhythmia. IMAGING: Chest x-ray shows no evidence of airspace disease. Nodular opacity in the right lung, 1.6 cm, present since November. CAT scan of the head shows normal. No acute abnormality. ASSESSMENT This is a 61 year old admitted post cardiac arrest. PLAN 1. Status post cardiopulmonary arrest. Most likely from COPD. She does have history of SVT, and currently she is having ventricular tachycardia. It could be cardiac also. Continue with ventilator management and start her on amiodarone as per cardiology's recommendation. Consult Dr. Awan and Dr. Ya for ventilation management. 2. Unresponsiveness. Rule out hypoxic brain injury. Continue ventilation. Hold off on sedation for now. With seizure-like activity and nystagmus. I am going to ask Dr. Ferrell to see. 3. Acute on chronic hypercapnic hypoxic respiratory failure from COPD and unresponsiveness. Continue with vent management and DuoNeb and Solu-Medrol. She does have history of COPD with chronic respiratory failure. 4. History of SVT, now with ventricular tachycardia. Cardiology is consulted. Patient will be started on amiodarone as per their recommendations. 5. Hypertension. Elevated on admission. She will receive Lopressor Unit #: [id number] #: [id number] Patient: AQUILES MENDOZA p.r.n. IV. 6. Metabolic acidosis. Most likely secondary to poor perfusion. Continue with IV fluids. 7. Mild elevation of troponins post cardiac arrest, nonspecific. Continue with ventilation. Monitor in ICU. Start amiodarone. 8. Discussed with and daughter. Very poor prognosis. Patient currently full code. NOTE: Critical care time taken is 40 minutes. Dictated by Rajwinder Ye/yajaira TD: 01/15/2017 15:48 JOB #: [id number] HISTORY AND PHYSICAL X Marybel Ramesh MD HISTORY AND PHYSICAL
--- NOTE | ~2017-01-15 | CT122 ---
[facility] A Service of [facility] RADIOLOGY TEXT RESULTS PATIENT: AQUILES MENDOZA LOCATION: [facility] : 57 UNIT #: [id number] AGE: [address]: Leon Mckinney MD SEX: F ORDER DR: [id number] [facility]. [place], [place] [address] [id number] I MR#: [id number] Acc #: [id number] NAME: AQUILES MENDOZA : 1955 SEX: F STUDY DATE/TIME: 01/19/2017 16:31 UNIT: [facility] ROOM: [facility] STUDY DESCRIPTION: CT Thoracic Spine Wo Cont Attending Physician: Jace Mcgregor M.D. Ordering Physician: Jace Mcgregor M.D. Primary Care Physician: Leon Mckinney M.D. MEDICAL IMAGING REPORT This report is preliminary unless electronic signature is present EXAM Thoracic spine CT no contrast, 01/19/[address], 01/06/2017 HISTORY Back pain, worsening since admission. TECHNIQUE This CT exam was performed with one or more of the following radiation dose reduction techniques: automatic exposure control, adjustment of mA and/or kV according to patient size, and iterative reconstruction. FINDINGS There is no fracture. Alignment is normal. There is mild degenerative change but there is no bone erosion or destruction. There appears to be right pleural effusion but the adjacent soft tissue structures are otherwise normal. There is no apparent canal stenosis. IMPRESSION 1. Somewhat limited by streak artifact, but there is no fracture or acute abnormality. There is no bone erosion or destruction. Alignment is normal. There is minimal degenerative change. 2. Suspect right pleural effusion. Dictated by... Warren Coronel M.D. THIS IS AN ELECTRONICALLY VERIFIED REPORT Warren Coronel M.D. at 01/22/2017 4:[address] [facility] A Service of [facility] RADIOLOGY TEXT RESULTS PATIENT: AQUILES MENDOZA LOCATION: [facility] : 57 UNIT #: [id number] AGE: [address]: Leon Mckniney MD SEX: F ORDER DR: Tracy TD: 01/20/2017 10:59 JOB #: [id number] MEDICAL IMAGING REPORT COPY
--- NOTE | ~2017-01-15 | EKG ---
PATIENT: AQUILES MENDOZA UNIT #: [id number] Ventricular Rate: 73 BPM Atrial Rate: 73 BPM P-R Interval: 136 ms QRS Duration: 92 ms Q-T Interval: 430 ms QTC Calculation(Bezet): 473 ms P [place]: 22 degrees Calculated R [place]: 78 degrees Calculated T [place]: 79 degrees Diagnosis Line: Normal sinus rhythm with sinus arrhythmia Diagnosis Line: Septal infarct , age undetermined Diagnosis Line: Abnormal ECG Diagnosis Line: No previous ECGs available Diagnosis Line: Confirmed by JAZMINE KELLEY MD ([id number]) on 01/15/2017 Diagnosis Line: 7:09:27 AM INTERPRETING MD: WARREN MCCURDY
--- NOTE | ~2017-01-15 | EKG ---
PATIENT: AQUILES MENDOZA UNIT #: [id number] Ventricular Rate: 79 BPM Atrial Rate: 79 BPM P-R Interval: 126 ms QRS Duration: 92 ms Q-T Interval: 406 ms QTC Calculation(Bezet): 465 ms P [place]: 78 degrees Calculated R [place]: 56 degrees Calculated T [place]: 45 degrees Diagnosis Line: Normal sinus rhythm Diagnosis Line: Septal infarct (cited on or before 15-JAN-2017) Diagnosis Line: Abnormal ECG Diagnosis Line: When compared with ECG of 15-JAN-2017 03:56, Diagnosis Line: ST now depressed in Inferior leads Diagnosis Line: Confirmed by PHAM SPANN MD ([id number]) on Diagnosis Line: 01/16/2017 11:45:07 AM INTERPRETING : WILFRED
--- NOTE | ~2017-01-15 | CT98 ---
[facility] A Service of [facility] RADIOLOGY TEXT RESULTS PATIENT: AQUILES MENDOZA LOCATION: [facility] 562-01 : 57 UNIT #: [id number] AGE: [address]: Leon Mckinney MD SEX: F ORDER DR: [id number] [facility]. [place], [place] [address] [id number] I MR#: [id number] Acc #: [id number] NAME: AQUILES MENDOZA : 1955 SEX: F STUDY DATE/TIME: 01/19/2017 9:19 UNIT: [facility] ROOM: [facility] STUDY DESCRIPTION: CT Lumbar Spine Wo Cont Attending Physician: Jace Mcgregor M.D. Ordering Physician: Jace Mcgregor M.D. Primary Care Physician: Leon Mckinney M.D. MEDICAL IMAGING REPORT This report is preliminary unless electronic signature is present EXAM Lumbar spine CT, no contrast, 01/19/2017. PROCEDURE Axial lumbar spine CT without contrast with multiplanar reformats. This CT exam was performed with one or more of the following radiation dose reduction techniques: automatic exposure control, adjustment of mA and/or kV according to patient size, and iterative reconstruction. COMPARISON None. HISTORY Progressive worsening back pain over the past 3 or 4 days. FINDINGS There is a grade 2 anterolisthesis at 5-1 and there are bilateral chronic appearing pars defect with, perhaps, some partial healing on the left. There is no acute fracture or bone erosion or destruction. The paraspinous soft tissues are unremarkable. At 1-2, 2-3, 3-4, and 4-5; there is no canal or foraminal stenosis. At 5-1, there is anterolisthesis and, while there is no canal stenosis, there is bilateral foraminal distortion and narrowing, probably moderate or baufijey-bu-qzpkip bilaterally. IMPRESSION Chronic grade two 5-1 anterolisthesis with bilateral pars defects and bilateral secondary foraminal distortion and narrowing, otherwise negative. [facility] A Service of [facility] RADIOLOGY TEXT RESULTS PATIENT: AQUILES MENDOZA LOCATION: [facility] 562- : [birth year] UNIT #: [id number] AGE: [address]: Leon Mckinney MD SEX: F ORDER DR: Dictated by... Warren Coronel M.D. THIS IS AN ELECTRONICALLY VERIFIED REPORT Warren Coronel M.D. at 01/22/2017 4:32 PM TEV/pc TD: 01/20/2017 12:01 JOB #: [id number] MEDICAL IMAGING REPORT COPY
--- NOTE | ~2017-01-15 | CR71 ---
[facility] A Service of [facility] & [facility] RADIOLOGY TEXT RESULTS PATIENT: AQUILES MENDOZA LOCATION: [place] [place] [address] : 57 UNIT #: [id number] AGE: [address]: Jace Mcgregor MD SEX: F ORDER DR: [id number] [facility] [address] [place], [place] [address] [id number] I MR#: [id number] Acc #: [id number] NAME: AQUILES MENDOZA : 1955 SEX: F STUDY DATE/TIME: 01/16/2017 6:04 UNIT: [facility] ROOM: [facility] STUDY DESCRIPTION: CR Chest Single View Attending Physician: Marybel Ramesh M.D. Ordering Physician: Marybel Ramesh M.D. Primary Care Physician: Leon Mckinney M.D. MEDICAL IMAGING REPORT This report is preliminary unless electronic signature is present EXAM Portable chest 01/16 INDICATIONS Resuscitated arrest. Respiratory failure. COPD. FINDINGS AP portable chest is compared with 01/15/2017. Right IJ line cavoatrial junction. ET tube mid trachea. Heart size normal. Lungs are emphysematous but clear. No pneumothorax. Dictated by... Holland Graff Jr., M.D. THIS IS AN ELECTRONICALLY VERIFIED REPORT Holland Graff Jr., M.D. at 01/16/2017 3:49 PM THA/mallorie TD: 01/16/2017 09:10 JOB #: [id number] MEDICAL IMAGING REPORT COPY
[2017-01-15 04:16] LABS: ARTERIAL BLD GAS O2 SATURATION 87.8 % (90.0-100.0); ARTERIAL BLOOD GAS CARBOXY HB 5.7 %sat (0.0-9.0); ARTERIAL BLOOD GAS HCO3 22.4 mmol/L; ARTERIAL BLOOD GAS MET HB 0.8 %sat (0.0-2.0); ARTERIAL BLOOD GAS pH 7.244 (7.350-7.450)
[2017-01-15 04:17] LABS: ARTERIAL BLOOD GAS ALLEN TEST NORMAL; ARTERIAL BLOOD GAS ART SITE LEFT RADIAL; ARTERIAL BLOOD GAS DELIVERY VENT; ARTERIAL BLOOD GAS PCO2 51.9 mmHg (35.0-45.0); ARTERIAL BLOOD GAS VENT MODE AC; ARTERIAL DRAW? YES
[~2017-01-15 04:27] MED LIST: ACETAMINOPHEN PO; ADVAIR 2501 DISK W/D; ADVAIR 2501 DISK W/D PO; ALBUTEROL17 GM INH; BISACODYL EC5 M1 PO; COMBIVENT MININEB; COMBIVENT MININEB INH; ESTRACE; ESTRACE2 M1 PO; ESTRADIOL PO; ESTRODOL; GUAIFENESIN-DM S5 ML PO; HUMIBID-LA600 MG PO; HYDRALAZINE HCL50 MG PO; LEVAQUIN PO; LORTAB 7.5-5001 TAB PO; MEDROL PO; NEXIUM PO; OMEPRAZOLE40 M1 PO; OMNICEF300 MG PO; PHENERGAN PO; PREDNISONE; PREDNISONE PO; PREDNISONE10 MG PO; PREDNISONE10 MG/DOSE PO; SYMBICORT INH; TESSALON PERLE100 M1 PO; TESSALON200 MG PO; TRICOR PO; TUSSIN MAX15 MG/5 M1 PO; VICODIN 5/500 T1 TAB; VICODIN 5/500 T1 TAB PO; VIT B-12 PO; ZITHROMAX PO
[2017-01-15 04:57] LABS: URINE APPEARANCE CLEAR; URINE BILIRUBIN NEG (NEG); URINE BLOOD NEG (NEG); URINE COLOR YELLOW; URINE GLUCOSE NEG (NEG); URINE KETONE NEG (NEG); URINE LEUKOCYTE ESTERASE NEG (NEG); URINE NITRATE NEG (NEG); URINE PROTEIN NEG (NEG); URINE SPECIFIC GRAVITY 1.019 (1.003-1.035); URINE UROBILINOGEN 0.2 MG/DL (NEG)
[2017-01-15 05:01] LABS: CULTURE INDICATED? NO
[2017-01-15 05:02] LABS: BASOPHIL# 0.2 X10e3 (0-0.3); BASOPHIL% 0.4 % (0-2.5); DIFF IND YES; EOSINOPHIL# 0.3 X10e3 (0-0.7); EOSINOPHIL% 0.7 % (0.0-7.0); HEMATOCRIT 47.8 % (35.0-45.0); HEMOGLOBIN 15.1 gm/dL (12.0-16.0); LYMPHOCYTE# 7.2 X10e3 (1.0-3.5); LYMPHOCYTE% 18.4 % (17.0-45.0); MEAN CELL VOLUME 102.7 FL (83-96); MEAN CORPUSCULAR HEMOGLOBIN 32.5 PG (28-34); MEAN CORPUSCULAR HGB CONC 31.7 g/dL (30-36); MEAN PLATELET VOLUME 9.2 FL (6.5-11.5); MONOCYTE# 1.9 X10e3 (0-1.0); MONOCYTE% 4.8 % (3.0-12.0); NEUTROPHIL# 29.9 X10e3 (1.5-7.1); NEUTROPHIL% 75.7 % (40-75); PLATELET COUNT 236 X10e3 (140-420); RED BLOOD COUNT 4.65 X10e (3.90-5.30); RED CELL DISTRIBUTION WIDTH 14.7 % (11.0-15.5); WHITE BLOOD COUNT 39.4 X10e3 (4.0-10.5)
[2017-01-15 05:15] LABS: ANISOCYTOSIS SL; PLATELET ESTIMATE NORMAL (NORMAL)
[2017-01-15 06:07] LABS: BLOOD UREA NITROGEN 19 mg/dL (9-23); BUN/CREATININE RATIO 21.11; CALCIUM SERUM 8.1 mg/dL (8.4-10.2); CARBON DIOXIDE 19 mmol/L (22-31); CHLORIDE 105 mmol/L (100-111); CREATININE SERUM 0.9 mg/dL (0.6-1.4); GLOM FILT RATE Estimated ABOVE60 mL/min (>60); GLUCOSE FASTING 270 mg/dL (70-110); POTASSIUM 4.8 mmol/L (3.5-5.1); SODIUM 140 mmol/L (135-145)
[2017-01-15 07:22] LABS: POC - CKMB 5.3 ng/mL (0.0-7.9); POC - TROPONIN 0.09 ng/mL (<=0.05)
[2017-01-15 07:32] LABS: PARTIAL THROMBOPLASTIN TIME 22.8 SECONDS (23.5-31.3); PROTHROMBIN TIME (PATIENT) 10.5 SECONDS (9.6-11.5)
[2017-01-15 07:58] LABS: %MB 7.6 % (0.0-4.0); MB 6.5 ng/ml
[2017-01-15 14:46] LABS: URINE APPEARANCE CLOUDY; URINE BLOOD 3+ (NEG); URINE COLOR YELLOW; URINE GLUCOSE NORM (NORM); URINE KETONE NEG (NEG); URINE LEUKOCYTE ESTERASE 1+ (NEG); URINE NITRATE NEG (NEG); URINE PROTEIN 1+ (NEG); URINE UROBILINOGEN NORM (NORM)
[2017-01-15 14:49] LABS: URINE BILIRUBIN NEG (NEG)
[2017-01-15 14:59] LABS: URINE AMORPHOUS SEDIMENT AMORP URATES; URINE SQUAMOUS EPITHELIAL CELL FEW /[HPF]; UWBCS1 AUWI 0-2 (0-5)
[2017-01-15 18:03] LABS: CHOLESTEROL 186 mg/dL (0-200); HDL CHOLESTEROL 70 mg/dL (35-95); LDL CHOLESTEROL 77 mg/dL (-130); LDL/HDL RATIO 1 RATIO (0-4); TRIGLYCERIDES 193 mg/dL (10-160)
[2017-01-15 18:36] LABS: HEMATOCRIT 45.1 % (35.0-45.0); HEMOGLOBIN 14.8 gm/dL (12.0-16.0); MEAN CORPUSCULAR HEMOGLOBIN 32.5 PG (28-34); MEAN CORPUSCULAR HGB CONC 32.9 g/dL (30-36); MEAN PLATELET VOLUME 8.7 FL (6.5-11.5); RED BLOOD COUNT 4.56 X10e (3.90-5.30); RED CELL DISTRIBUTION WIDTH 14.5 % (11.0-15.5); WHITE BLOOD COUNT 26.2 X10e3 (4.0-10.5)
[2017-01-15 18:37] LABS: MEAN CELL VOLUME 98.9 FL (83-96)
[2017-01-15 18:56] LABS: BLOOD UREA NITROGEN 22 mg/dL (9-23); CALCIUM SERUM 7.9 mg/dL (8.4-10.2); CARBON DIOXIDE 25 mmol/L (22-31); CHLORIDE 106 mmol/L (100-111); CREATININE SERUM 0.8 mg/dL (0.6-1.4); GLOM FILT RATE Estimated ABOVE60 mL/min (>60); GLUCOSE FASTING 154 mg/dL (70-110); MAGNESIUM 1.7 mg/dL (1.6-3.0); POTASSIUM 4.3 mmol/L (3.5-5.1); SODIUM 140 mmol/L (135-145)
[2017-01-16 04:56] LABS: ARTERIAL BLOOD GAS CARBOXY HB 0.3 %sat (0.0-9.0); ARTERIAL BLOOD GAS HCO3 23.8 mmol/L; ARTERIAL BLOOD GAS MET HB 0.8 %sat (0.0-2.0); ARTERIAL BLOOD GAS pH 7.394 (7.350-7.450)
[2017-01-16 05:01] LABS: ARTERIAL BLOOD GAS ALLEN TEST NORMAL; ARTERIAL BLOOD GAS ART SITE LEFT RADIAL; ARTERIAL DRAW? YES
[2017-01-16 05:02] LABS: ARTERIAL BLOOD GAS DELIVERY VENT; ARTERIAL BLOOD GAS VENT MODE AC
[2017-01-16 05:38] LABS: BASOPHIL% 0.1 % (0-2.5); HEMATOCRIT 43.2 % (35.0-45.0); HEMOGLOBIN 14.2 gm/dL (12.0-16.0); LYMPHOCYTE# 0.9 X10e3 (1.0-3.5); LYMPHOCYTE% 4.3 % (17.0-45.0); MEAN CELL VOLUME 98.8 FL (83-96); MEAN CORPUSCULAR HEMOGLOBIN 32.5 PG (28-34); MEAN CORPUSCULAR HGB CONC 32.9 g/dL (30-36); MEAN PLATELET VOLUME 9.2 FL (6.5-11.5); MONOCYTE# 0.2 X10e3 (0-1.0); NEUTROPHIL# 19.8 X10e3 (1.5-7.1); NEUTROPHIL% 94.6 % (40-75); PLATELET COUNT 174 X10e3 (140-420); RED BLOOD COUNT 4.38 X10e (3.90-5.30); RED CELL DISTRIBUTION WIDTH 14.7 % (11.0-15.5); WHITE BLOOD COUNT 20.9 X10e3 (4.0-10.5)
[2017-01-16 05:43] LABS: DIFF IND NO
[2017-01-16 06:40] LABS: ALBUMIN SERUM 2.9 g/dL (3.5-5.0); ALKALINE PHOSPHATASE 97 U/L (32-92); ALT (SGPT) 67 U/L (10-40); AST (SGOT) 41 U/L (10-42); BILIRUBIN,TOTAL 0.9 mg/dL (0.2-2.0); BLOOD UREA NITROGEN 18 mg/dL (9-23); BUN/CREATININE RATIO 25.71; CALCIUM SERUM 8.2 mg/dL (8.4-10.2); CARBON DIOXIDE 25 mmol/L (22-31); CHLORIDE 106 mmol/L (100-111); CREATININE SERUM 0.7 mg/dL (0.6-1.4); GLOM FILT RATE Estimated ABOVE60 mL/min (>60); GLUCOSE FASTING 189 mg/dL (70-110); MAGNESIUM 1.7 mg/dL (1.6-3.0); PHOSPHOROUS 2.4 mg/dL (2.5-4.6); POTASSIUM 4.2 mmol/L (3.5-5.1); PROTEIN TOTAL SERUM 5.4 g/dL (6.0-8.3); SODIUM 141 mmol/L (135-145)
[2017-01-17 05:07] LABS: BASOPHIL% 0.1 % (0-2.5); HEMATOCRIT 37.6 % (35.0-45.0); HEMOGLOBIN 12.6 gm/dL (12.0-16.0); LYMPHOCYTE# 0.7 X10e3 (1.0-3.5); LYMPHOCYTE% 4.5 % (17.0-45.0); MEAN CELL VOLUME 98.8 FL (83-96); MEAN CORPUSCULAR HEMOGLOBIN 33.1 PG (28-34); MEAN CORPUSCULAR HGB CONC 33.5 g/dL (30-36); MEAN PLATELET VOLUME 9.5 FL (6.5-11.5); MONOCYTE# 0.6 X10e3 (0-1.0); MONOCYTE% 3.8 % (3.0-12.0); NEUTROPHIL# 13.7 X10e3 (1.5-7.1); NEUTROPHIL% 91.6 % (40-75); PLATELET COUNT 143 X10e3 (140-420); RED BLOOD COUNT 3.81 X10e (3.90-5.30); RED CELL DISTRIBUTION WIDTH 14.5 % (11.0-15.5)
[2017-01-17 05:22] LABS: DIFF IND NO
[2017-01-17 05:37] LABS: ALBUMIN SERUM 2.5 g/dL (3.5-5.0); ALKALINE PHOSPHATASE 71 U/L (32-92); ALT (SGPT) 45 U/L (10-40); AST (SGOT) 22 U/L (10-42); BILIRUBIN,TOTAL 0.5 mg/dL (0.2-2.0); BLOOD UREA NITROGEN 13 mg/dL (9-23); CALCIUM SERUM 7.7 mg/dL (8.4-10.2); CARBON DIOXIDE 23 mmol/L (22-31); CHLORIDE 112 mmol/L (100-111); CREATININE SERUM 0.5 mg/dL (0.6-1.4); GLOM FILT RATE Estimated ABOVE60 mL/min (>60); GLUCOSE FASTING 190 mg/dL (70-110); MAGNESIUM 2.2 mg/dL (1.6-3.0); POTASSIUM 3.6 mmol/L (3.5-5.1); PROTEIN TOTAL SERUM 5.3 g/dL (6.0-8.3); SODIUM 137 mmol/L (135-145)
[2017-01-17 09:45] LABS: ARTERIAL BLD GAS O2 SATURATION 95.8 % (90.0-100.0); ARTERIAL BLOOD GAS CARBOXY HB 0.6 %sat (0.0-9.0); ARTERIAL BLOOD GAS HCO3 22.6 mmol/L; ARTERIAL BLOOD GAS MET HB 1.1 %sat (0.0-2.0); ARTERIAL BLOOD GAS PCO2 38.3 mmHg (35.0-45.0); ARTERIAL BLOOD GAS PO2 94.7 mmHg (80.0-100); ARTERIAL BLOOD GAS pH 7.379 (7.350-7.450)
[2017-01-17 10:00] LABS: ARTERIAL BLOOD GAS ART SITE LEFT RADIAL; ARTERIAL BLOOD GAS DELIVERY VENT; ARTERIAL BLOOD GAS VENT MODE SIMV; ARTERIAL DRAW? YES
[2017-01-18 05:08] LABS: ALBUMIN SERUM 2.7 g/dL (3.5-5.0); ALKALINE PHOSPHATASE 78 U/L (32-92); ALT (SGPT) 43 U/L (10-40); AST (SGOT) 27 U/L (10-42); BASOPHIL% 0.1 % (0-2.5); BILIRUBIN,TOTAL 0.8 mg/dL (0.2-2.0); BLOOD UREA NITROGEN 16 mg/dL (9-23); CALCIUM SERUM 8.5 mg/dL (8.4-10.2); CARBON DIOXIDE 23 mmol/L (22-31); CHLORIDE 111 mmol/L (100-111); CREATININE SERUM 0.5 mg/dL (0.6-1.4); GLOM FILT RATE Estimated ABOVE60 mL/min (>60); GLUCOSE FASTING 142 mg/dL (70-110); HEMATOCRIT 35.8 % (35.0-45.0); HEMOGLOBIN 11.7 gm/dL (12.0-16.0); LYMPHOCYTE# 0.5 X10e3 (1.0-3.5); LYMPHOCYTE% 2.5 % (17.0-45.0); MEAN CELL VOLUME 98.7 FL (83-96); MEAN CORPUSCULAR HEMOGLOBIN 32.2 PG (28-34); MEAN CORPUSCULAR HGB CONC 32.7 g/dL (30-36); MEAN PLATELET VOLUME 9.4 FL (6.5-11.5); MONOCYTE# 0.6 X10e3 (0-1.0); MONOCYTE% 3.1 % (3.0-12.0); NEUTROPHIL# 17.6 X10e3 (1.5-7.1); NEUTROPHIL% 94.3 % (40-75); PLATELET COUNT 139 X10e3 (140-420); POTASSIUM 4.1 mmol/L (3.5-5.1); PROTEIN TOTAL SERUM 5.6 g/dL (6.0-8.3); RED BLOOD COUNT 3.62 X10e (3.90-5.30); SODIUM 141 mmol/L (135-145); WHITE BLOOD COUNT 18.6 X10e3 (4.0-10.5)
[2017-01-18 05:24] LABS: DIFF IND YES
[2017-01-18 05:49] LABS: ANISOCYTOSIS SL; RBC NORMAL YES
[2017-01-18 05:50] LABS: PLATELET ESTIMATE DECREASED (NORMAL)
[2017-01-19 05:27] LABS: BASOPHIL% 0.1 % (0-2.5); HEMATOCRIT 38.8 % (35.0-45.0); LYMPHOCYTE# 0.6 X10e3 (1.0-3.5); LYMPHOCYTE% 3.9 % (17.0-45.0); MEAN CELL VOLUME 98.3 FL (83-96); MEAN CORPUSCULAR HEMOGLOBIN 32.9 PG (28-34); MEAN CORPUSCULAR HGB CONC 33.5 g/dL (30-36); MEAN PLATELET VOLUME 9.1 FL (6.5-11.5); MONOCYTE# 0.4 X10e3 (0-1.0); MONOCYTE% 2.7 % (3.0-12.0); NEUTROPHIL# 14.1 X10e3 (1.5-7.1); NEUTROPHIL% 93.3 % (40-75); PLATELET COUNT 141 X10e3 (140-420); RED BLOOD COUNT 3.95 X10e (3.90-5.30); RED CELL DISTRIBUTION WIDTH 15.1 % (11.0-15.5); WHITE BLOOD COUNT 15.2 X10e3 (4.0-10.5)
[2017-01-19 05:31] LABS: DIFF IND NO
[2017-01-19 06:22] LABS: BLOOD UREA NITROGEN 17 mg/dL (9-23); BUN/CREATININE RATIO 28.33; CALCIUM SERUM 9.2 mg/dL (8.4-10.2); CARBON DIOXIDE 25 mmol/L (22-31); CHLORIDE 102 mmol/L (100-111); CREATININE SERUM 0.6 mg/dL (0.6-1.4); GLOM FILT RATE Estimated ABOVE60 mL/min (>60); GLUCOSE FASTING 132 mg/dL (70-110); POTASSIUM 4.2 mmol/L (3.5-5.1); SODIUM 142 mmol/L (135-145)
[2017-01-19 06:37] LABS: PROCALCITONIN 0.06 NG/ML
[2017-01-19 06:39] LABS: FOLATE (FOLIC ACID) 8.8 ng/mL (>5.8)
[2017-01-19 12:19] LABS: PROTHROMBIN TIME (PATIENT) 10.4 SECONDS (9.6-11.5)
[2017-01-19 12:29] LABS: PARTIAL THROMBOPLASTIN TIME <20.0 SECONDS (23.5-31.3)
[2017-01-20 09:28] LABS: HEMATOCRIT 35.9 % (35.0-45.0); HEMOGLOBIN 12.2 gm/dL (12.0-16.0); MEAN CELL VOLUME 97.4 FL (83-96); MEAN CORPUSCULAR HGB CONC 33.9 g/dL (30-36); MEAN PLATELET VOLUME 9.7 FL (6.5-11.5); RED BLOOD COUNT 3.69 X10e (3.90-5.30); RED CELL DISTRIBUTION WIDTH 14.2 % (11.0-15.5); WHITE BLOOD COUNT 12.5 X10e3 (4.0-10.5)
[2017-01-20 09:40] LABS: URINE APPEARANCE CLEAR; URINE BILIRUBIN NEG (NEG); URINE BLOOD TRACE (NEG); URINE COLOR YELLOW; URINE GLUCOSE NEG (NEG); URINE KETONE NEG (NEG); URINE LEUKOCYTE ESTERASE TRACE (NEG); URINE NITRATE NEG (NEG); URINE PROTEIN NEG (NEG); URINE SPECIFIC GRAVITY 1.011 (1.003-1.035); URINE UROBILINOGEN 0.2 MG/DL (NEG)
[2017-01-20 09:43] LABS: U HYALINE CASTS AUWI 0-2 /[LPF]; URINE BACTERIA AUWI 2+ (NEGATIVE); URINE SQUAMOUS EPITHELIAL CELL NONE SEEN /[HPF]
[2017-01-20 12:00] LABS: BLOOD UREA NITROGEN 20 mg/dL (9-23); BUN/CREATININE RATIO 28.57; CALCIUM SERUM 9.1 mg/dL (8.4-10.2); CARBON DIOXIDE 36 mmol/L (22-31); CHLORIDE 95 mmol/L (100-111); CREATININE SERUM 0.7 mg/dL (0.6-1.4); GLOM FILT RATE Estimated ABOVE60 mL/min (>60); GLUCOSE FASTING 224 mg/dL (70-110); SODIUM 141 mmol/L (135-145)
[2017-01-20 12:02] LABS: POTASSIUM 3.2 mmol/L (3.5-5.1)
[2017-01-21 06:24] LABS: HEMATOCRIT 34.4 % (35.0-45.0); HEMOGLOBIN 11.7 gm/dL (12.0-16.0); MEAN CELL VOLUME 97.8 FL (83-96); MEAN CORPUSCULAR HEMOGLOBIN 33.4 PG (28-34); MEAN CORPUSCULAR HGB CONC 34.2 g/dL (30-36); MEAN PLATELET VOLUME 9.7 FL (6.5-11.5); RED BLOOD COUNT 3.51 X10e (3.90-5.30); RED CELL DISTRIBUTION WIDTH 14.2 % (11.0-15.5); WHITE BLOOD COUNT 13.3 X10e3 (4.0-10.5)
[2017-01-21 06:55] LABS: BLOOD UREA NITROGEN 24 mg/dL (9-23); CALCIUM SERUM 8.8 mg/dL (8.4-10.2); CARBON DIOXIDE 37 mmol/L (22-31); CHLORIDE 96 mmol/L (100-111); CREATININE SERUM 0.6 mg/dL (0.6-1.4); GLOM FILT RATE Estimated ABOVE60 mL/min (>60); GLUCOSE FASTING 97 mg/dL (70-110); POTASSIUM 3.2 mmol/L (3.5-5.1); SODIUM 138 mmol/L (135-145)
[2017-01-21 07:10] LABS: FREE THYROXIN (T4) 1.07 ng/dL (0.58-1.64)
[2017-01-22 07:41] LABS: HEMATOCRIT 35.4 % (35.0-45.0); MEAN CELL VOLUME 97.9 FL (83-96); MEAN CORPUSCULAR HEMOGLOBIN 33.2 PG (28-34); MEAN CORPUSCULAR HGB CONC 33.9 g/dL (30-36); MEAN PLATELET VOLUME 9.4 FL (6.5-11.5); RED BLOOD COUNT 3.62 X10e (3.90-5.30); RED CELL DISTRIBUTION WIDTH 14.1 % (11.0-15.5); WHITE BLOOD COUNT 10.8 X10e3 (4.0-10.5)
[2017-01-22 08:00] LABS: BLOOD UREA NITROGEN 22 mg/dL (9-23); CALCIUM SERUM 9.2 mg/dL (8.4-10.2); CARBON DIOXIDE 36 mmol/L (22-31); CHLORIDE 94 mmol/L (100-111); CREATININE SERUM 0.5 mg/dL (0.6-1.4); GLOM FILT RATE Estimated ABOVE60 mL/min (>60); GLUCOSE FASTING 102 mg/dL (70-110); POTASSIUM 4.3 mmol/L (3.5-5.1); SODIUM 138 mmol/L (135-145)
[2017-01-23 08:08] LABS: BASOPHIL% 0.2 % (0-2.5); EOSINOPHIL# 0.3 X10e3 (0-0.7); EOSINOPHIL% 2.4 % (0.0-7.0); HEMATOCRIT 35.6 % (35.0-45.0); HEMOGLOBIN 12.1 gm/dL (12.0-16.0); LYMPHOCYTE# 2.7 X10e3 (1.0-3.5); LYMPHOCYTE% 26.2 % (17.0-45.0); MEAN CELL VOLUME 98.1 FL (83-96); MEAN CORPUSCULAR HEMOGLOBIN 33.3 PG (28-34); MEAN CORPUSCULAR HGB CONC 33.9 g/dL (30-36); MEAN PLATELET VOLUME 9.2 FL (6.5-11.5); MONOCYTE# 0.6 X10e3 (0-1.0); MONOCYTE% 6.2 % (3.0-12.0); NEUTROPHIL# 6.7 X10e3 (1.5-7.1); PLATELET COUNT 152 X10e3 (140-420); RED BLOOD COUNT 3.63 X10e (3.90-5.30); RED CELL DISTRIBUTION WIDTH 14.5 % (11.0-15.5); WHITE BLOOD COUNT 10.3 X10e3 (4.0-10.5)
[2017-01-23 08:09] LABS: DIFF IND NO
[2017-01-23 08:18] LABS: PARTIAL THROMBOPLASTIN TIME 22.9 SECONDS (23.5-31.3); PROTHROMBIN TIME (PATIENT) 10.2 SECONDS (9.6-11.5)
[2017-01-23 08:34] LABS: BLOOD UREA NITROGEN 25 mg/dL (9-23); CALCIUM SERUM 8.9 mg/dL (8.4-10.2); CARBON DIOXIDE 36 mmol/L (22-31); CHLORIDE 94 mmol/L (100-111); CREATININE SERUM 0.5 mg/dL (0.6-1.4); GLOM FILT RATE Estimated ABOVE60 mL/min (>60); GLUCOSE FASTING 107 mg/dL (70-110); POTASSIUM 4.1 mmol/L (3.5-5.1); SODIUM 137 mmol/L (135-145)
== END 2017-01-23 09:32 | DRG 208 ==
LOC: CED 04:27 → CEDOF 07:10 → CICCU2 10:00 → C5B 01-18 18:03
PROVIDERS: Emergency Medicine; Family Medicine; Internal Medicine; Internal Medicine Cardiovascular Disease; Internal Medicine Pulmonary Disease; Nurse Practitioner Critical Care Medicine
PROC: 5A1945Z Respiratory Ventilation, 24-96 Consecutive Hours (ICD-10-PCS; principal; 2017-01-15)
PROC: B24BYZZ Ultrasonography of Heart with Aorta using Other Contrast (ICD-10-PCS; 2017-01-16)
PROC: 4A023N7 Measurement of Cardiac Sampling and Pressure, Left Heart, Percutaneous Approach (ICD-10-PCS; 2017-01-19)
PROC: B211YZZ Fluoroscopy of Multiple Coronary Arteries using Other Contrast (ICD-10-PCS; 2017-01-19)
PROC: B215YZZ Fluoroscopy of Left Heart using Other Contrast (ICD-10-PCS; 2017-01-19)
DX: J96.22 Acute and chronic respiratory failure with hypercapnia (principal); R57.0 Cardiogenic shock; G93.1 Anoxic brain damage, not elsewhere classified; G93.41 Metabolic encephalopathy; I47.2 Ventricular tachycardia; J44.1 Chronic obstructive pulmonary disease with (acute) exacerbation; E87.2 Acidosis; J96.21 Acute and chronic respiratory failure with hypoxia; I10 Essential (primary) hypertension; R74.9 Abnormal serum enzyme level, unspecified; K21.9 Gastro-esophageal reflux disease without esophagitis; Z90.710 Acquired absence of both cervix and uterus; Z90.49 Acquired absence of other specified parts of digestive tract; Z91.041 Radiographic dye allergy status; I25.10 Atherosclerotic heart disease of native coronary artery without angina pectoris; E11.9 Type 2 diabetes mellitus without complications; Z79.84 Long term (current) use of oral hypoglycemic drugs; G89.4 Chronic pain syndrome; E66.9 Obesity, unspecified; R41.82 Altered mental status, unspecified; T50.995A Adverse effect of other drugs, medicaments and biological substances, initial encounter; Z68.28 Body mass index [BMI] 28.0-28.9, adult
CPT/HCPCS: 36415; 36600; 51702; 70450; 70551; 71010; 72128; 72131; 74000; 80048; 80053; 80061; 81003; 82140; 82308; 82550; 82553; 82607; 82746; 82803; 82947; 83605; 83735; 83880; 84100; 84132; 84439; 84443; 84481; 84484; 85025; 85027; 85610; 85730; 87040; 92526; 92610; 93005; 93306; 94002; 94003; 94640; 94760; 94761; 95816; 96365; 96366; 96367; 96375; 97116; 97162; 97166; 97530; 97535; 99291; C1769; C1887; C1894; C9113; G8978-GP; G8979-GP; J0282; J1200; J1630; J1644; J1650; J1815; J1885; J1953; J2060; J2250; J2370; J2920; J2930; J3010; J3475; J3490